=== PATIENT | male | born 1960 | race African-American/Black ===

== ENCOUNTER 2017-04-18 09:52 | Inpatient (IN) | payer MEDICARE, OTHER ==
[~2017-04-18] VITALS: Ht 185.4 cm; Wt 117.9 kg
[~2017-04-18 09:52] MED LIST: BACTRIM DS TAB1 EAC1 ORAL; DOCUSATE S50 MG/5 ML PO; DULCOLAX10 MG RC; FAMOTIDINE20 MG ORAL; FOLIC ACID1 MG ORAL; HYDRALAZINE HCL50 MG ORAL; IBUPROFEN800 MG ORAL; LISINOPRIL5 MG ORAL; MILK OF MA400 MG/51 ORAL; PLAVIX75 MG ORAL; TYLENOL325 MG ORAL; TYLENOL650 MG/20. ORAL; UNOBMED; UTI-STAT L3875 MG/31 PO; VITAMIN B122500 MCG PO; VITAMIN B650 M1 GT; VITAMIN D31000 UNI2 PO
[2017-04-18] MEDS ORDERED: TYLENOL EXTRA500 MG ORAL (10:02)
[2017-04-18] MEDS ORDERED: VITAMIN C500 M3 ORAL (10:02)
[2017-04-18] MEDS ORDERED: KEPPRA LIQ100 MG/1 M GT (10:02)
[2017-04-18] MEDS ORDERED: MULTI-DELYN237 ML GT (10:02)
[2017-04-18 10:10] VITALS: BP 142/76
[2017-04-18 10:44] LABS: BASOPHILS % (AUTO) 0.7 % (0.0-2.0); EOSINOPHILS % (AUTO) 0.1 % (0.0-3.0); LYMPHOCYTES % (AUTO) 11.5 % (20.0-45.0); MEAN CORPUSCULAR HEMOGLOBIN 26.9 PG (27.0-31.0); MEAN CORPUSCULAR HGB CONC 31.4 G/DL (32.0-36.0); MEAN CORPUSCULAR VOLUME 86 FL (80-99); MEAN PLATELET VOLUME 5.9 FL (6.5-10.1); MONOCYTES % (AUTO) 6.5 % (1.0-10.0); NEUTROPHILS % (AUTO) 81.2 % (45.0-75.0); PLATELET COUNT 419 K/UL (150-450); RED BLOOD COUNT 5.46 M/UL (4.70-6.10); WHITE BLOOD COUNT 13.2 K/UL (4.8-10.8)
--- NOTE | 2017-04-18 10:49 | Diagnostic Imaging Report ---
Indication: Shortness of breath Technique: XRAY CHEST 1 V Comparison: None Findings: Examination is limited by poor inspiration with bronchovascular crowding and left basilar atelectasis. Cardiac silhouette appears prominent. There is no consolidation or obvious pleural effusion. Degenerative changes of the spine are seen. Impression: Poor inspiration with bronchovascular crowding and left basilar atelectasis. Followup recommended.
[2017-04-18 11:01] LABS: TROPONIN I < 0.30 ng/mL (<=0.30)
[2017-04-18 11:04] LABS: ALANINE AMINOTRANSFERASE 17 U/L (3-41); ALBUMIN/GLOBULIN RATIO 1.1 (1.0-2.7); ANION GAP 20 (5-15); ASPARTATE AMINO TRANSFERASE 16 U/L (5-40); CALCIUM 9.9 mg/dL (8.6-10.2); CARBON DIOXIDE 20 mEQ/L (20-30); CHLORIDE 100 mEQ/L (98-107); CREATININE 1.1 mg/dL (0.7-1.2); GLOMERULAR FILTRATION RATE > 60 mL/min (>60); HEMOLYSIS 16; POTASSIUM 4.3 mEQ/L (3.4-4.9); SODIUM 140 mEQ/L (135-145); TOTAL PROTEIN 8.4 g/dL (6.6-8.7)
[2017-04-18 11:14] LABS: CKMB < 1.5 ng/mL (< 6.7)
[2017-04-18 11:35] VITALS: BP 153/96
[2017-04-18 12:10] LABS: APPEARANCE,URINE SLIGHTLY CLOUDY; KETONES,URINE 1+ (NEGATIVE); LEUKOCYTE ESTERASE ,URINE NEGATIVE (NEGATIVE); NITRITE,URINE NEGATIVE (NEGATIVE); PH,URINE 5 (4.5-8.0); PROTEIN,URINE 2+ (NEGATIVE); UROBILINOGEN,URINE NORMAL MG/DL (0.0-1.0)
[2017-04-18 12:18] LABS: BACTERIA,URINE FEW /HPF; SQUAMOUS EPITHELIAL CELL,UR OCCASIONAL /LPF (NONE/OCC); WBC,URINE 0-2 /HPF (0 - 0)
[2017-04-18 12:19] LABS: AMORPHOUS SEDIMENT,UR FEW /LPF
[2017-04-18 13:34] VITALS: BP 141/75
[2017-04-18] MEDS ORDERED: Cefepime 2gm ONE (13:57)
[2017-04-18] MEDS ORDERED: Cefepime HCl 2 GM in D5W 110 ML IVPB ONE (14:00)
[2017-04-18] MEDS ORDERED: Vancomycin 1.5gm/D5W 250ml 250 ML IVPB ONE (14:00)
--- NOTE | 2017-04-18 14:02 | Emergency Room Report ---
History of Present Illness General Chief Complaint: Altered Mental Status Source: EMS Present Illness HPI 56-year-old male coming from [facility] with a history of CVA w right -sided hemiparesis, hypertension chronic kidney disease, dementia sent from [place] from inceased AMS. Per ems, patient's baseline aox1, was noted to be "more altered" than his normal this morning. unknown last seen normal. patient can say his name although not answering questions appropriately at this time Allergies: Coded Allergies: NO KNOWN ALLERGIES (Unverified Allergy, Unknown, 06/28/15) Patient History Limited by: medical condition Past Medical History: HTN, CVA/TIA, psych hx Past Surgical History: unable to obtain Pertinent Family History: unable to obtain Nursing Documentation-PMH Hx Cardiac Problems: No Hx Asthma: No Hx COPD: Yes Hx Diabetes: Yes Hx Cancer: No Hx Gastrointestinal Problems: Yes - DYSPHAGIA, GTUBE, GERD Hx Cerebrovascular Accident: Yes Hx Transient Ischemic Attacks: No Hx Dementia: No Hx Alzheimer's Disease: No Hx Parkinson's Disease: No Hx Encephalitis: No Hx Seizures: Yes Hx Epilepsy: Yes - without status epilepticus Hx Multiple Sclerosis: No Hx Cerebral Palsy: No Hx Amyotrophic Lat Sclerosis: No Hx Guillian-[place] Syndrome: No Hx Paralysis: No Hx Peripheral Neuropathy: No Hx Spinal Cord Injury: No Hx Head Trauma: No Hx Traumatic Brain Injury: No Hx Memory Loss: No Hx Concentration Difficulty: No Hx Speech Problem: Yes - aphasia Hx Tremors: No Hx Vertigo: No Hx Dizziness: No Hx Syncope: No Hx Headaches: No Hx Aphasia: Yes Hx Dysphasia: Yes Hx Numbness: No Hx Weakness: No Hx Fatigue: No Hx Neurologic Surgery: No Hx Brain Shunt: No Review of Systems All Other Systems: limited Physical Exam Vital Signs Date Time Temp Pulse Resp B/P Pulse Ox O2 Delivery O2 Flow Rate FiO2 04/18/17 09:46 98.4 88 20 142/76 98 Room Air Sp02 EP Interpretation: normal General Appearance: other - Chronically ill-appearing male awake oriented to name following directions only with left side not conversing Head: normocephalic, atraumatic Eyes: bilateral eye EOMI, bilateral eye PERRL, bilateral eye normal inspection ENT: normal ENT inspection, normal pharynx, moist mucus membranes Neck: normal inspection, full range of motion, supple Respiratory: normal inspection, lungs clear, normal breath sounds, no respiratory distress, no retraction, no wheezing Cardiovascular #1: normal inspection, regular rate, rhythm, no edema, normal capillary refill Gastrointestinal: normal inspection, other - PEG tube in place. No grimace to deep palpation all quadrants of abdomen Genitourinary: no CVA tenderness Musculoskeletal: normal inspection, back normal, non-tender, other Neurologic: other - Oriented x1. Not conversing. Right-sided hemiparesis Skin: normal inspection, normal color, no rash, warm/dry, well hydrated, normal turgor Medical Decision Making Diagnostic Impression: Primary Impression: Altered mental status Additional Impression: Pneumonia ER Course 56 yo M with AMS DDX: electrolyte disturbance, dehydration, cardiac ekg Plan: Obtain labs, ua, ucx, CXR, EKG CT head ER course: Labs: mild leukocytosis, trop negative EKG: NSR, mild KAUSHIK I and aVL concave morphology only no reciprocal changes CXR: R sided infiltrate CT head: no acute disease patient has otherwise remained stable during ED stay Disposition: Patient is to be admitted to med surg unit. Patient requires inpatient admission due to ams and pneumonia D/w hospitalist Laboratory Tests Test 04/18/17 10:15 04/18/17 11:56 White Blood Count 13.2 K/UL (4.8-10.8) H Red Blood Count 5.46 M/UL (4.70-6.10) Hemoglobin 14.7 G/DL (14.2-18.0) Hematocrit 46.8 % (42.0-52.0) Mean Corpuscular Volume 86 FL (80-99) Mean Corpuscular Hemoglobin 26.9 PG (27.0-31.0) L Mean Corpuscular Hemoglobin Concent 31.4 G/DL (32.0-36.0) L Red Cell Distribution Width 13.0 % (11.6-14.8) Platelet Count 419 K/UL (150-450) Mean Platelet Volume 5.9 FL (6.5-10.1) L Neutrophils (%) (Auto) 81.2 % (45.0-75.0) H Lymphocytes (%) (Auto) 11.5 % (20.0-45.0) L Monocytes (%) (Auto) 6.5 % (1.0-10.0) Eosinophils (%) (Auto) 0.1 % (0.0-3.0) Basophils (%) (Auto) 0.7 % (0.0-2.0) Sodium Level 140 mEQ/L (135-145) Potassium Level 4.3 mEQ/L (3.4-4.9) Chloride Level 100 mEQ/L (98-107) Carbon Dioxide Level 20 mEQ/L (20-30) Anion Gap 20 (5-15) H Blood Urea Nitrogen 12 mg/dL (7-23) Creatinine 1.1 mg/dL (0.7-1.2) Estimate Glomerular Filtration Rate > 60 mL/min (>60) Glucose Level 126 mg/dL (74-106) H Calcium Level 9.9 mg/dL (8.6-10.2) Total Bilirubin < 0.2 mg/dL (0.0-1.2) Aspartate Amino Transferase (AST) 16 U/L (5-40) Alanine Aminotransferase (ALT) 17 U/L (3-41) Alkaline Phosphatase 70 U/L (40-129) Total Creatine Kinase 65 U/L (38-174) Creatine Kinase MB < 1.5 ng/mL (< 6.7) Creatine Kinase MB Relative Index 2.3 Troponin I < 0.30 ng/mL (<=0.30) Total Protein 8.4 g/dL (6.6-8.7) Albumin 4.4 g/dL (3.5-5.2) Globulin 4.0 g/dL Albumin/Globulin Ratio 1.1 (1.0-2.7) Urine Color Pale yellow Urine Appearance Slightly cloudy Urine pH 5 (4.5-8.0) Urine Specific [place] 1.020 (1.005-1.035) Urine Protein 2+ (NEGATIVE) H Urine Glucose (UA) Negative (NEGATIVE) Urine Ketones 1+ (NEGATIVE) H Urine Occult Blood 1+ (NEGATIVE) H Urine Nitrite Negative (NEGATIVE) Urine Bilirubin Negative (NEGATIVE) Urine Urobilinogen Normal MG/DL (0.0-1.0) Urine Leukocyte Esterase Negative (NEGATIVE) Urine RBC 2-4 /HPF (0 - 0) H Urine WBC 0-2 /HPF (0 - 0) Urine Squamous Epithelial Cells Occasional /LPF Urine Amorphous Sediment Few /LPF (NONE) H Urine Bacteria Few /HPF (NONE) Urine Opiates Screen Negative (NEGATIVE) Urine Barbiturates Screen Negative (NEGATIVE) Phencyclidine (PCP) Screen Negative (NEGATIVE) Urine Amphetamines Screen Negative (NEGATIVE) Urine Benzodiazepines Screen Negative (NEGATIVE) Urine Cocaine Screen Negative (NEGATIVE) Urine Marijuana (THC) Screen Negative (NEGATIVE) EKG Diagnostic Results Rate: normal Rhythm: NSR ST Segments: other - mild KAUSHIK concave morphology ASA given to the pt in ED: No Rhythm Strip Diag. Results EP Interpretation: yes Rhythm: NSR, no PVC's Chest X-Ray Diagnostic Results Chest X-Ray Diagnostic Results : Chest X-Ray Ordered: Yes # of Views/Limited/Complete: 1 View Indication: Other EP Interpretation: Yes Interpretation: other - R infiltrate Impression: Other - R sided infiltrate c/w pneumonia Interpreting ER Provider: Electronically signed by Diaz Davenport M.D. Last Vital Signs Date Time Temp Pulse Resp B/P Pulse Ox O2 Delivery O2 Flow Rate FiO2 04/18/17 13:34 98.9 85 16 141/75 98 04/18/17 11:35 Room Air Disposition: ADMITTED INPATIENT Condition: Serious Referrals: NON PHYSICIAN (PCP) Diaz Davenport M.D. Apr 18, 2017 14:02
[2017-04-18] MEDS ORDERED: Acetaminophen 500mg (ES) tab ORAL PRN (16:15)
[2017-04-18] MEDS ORDERED: Fleet's Enema 133ml RECTAL PRN (16:15)
[2017-04-18] MEDS ORDERED: Milk of Magnesia 30ml Ud ORAL PRN (16:15)
[2017-04-18] MEDS: Ferrous Sulfate 300 MG/5 ML UDC ORAL SCH (16:15)
[2017-04-18] MEDS: NovoLOG Insulin Flexpen SUBQ SCH ×2 (16:30→21:38)
[2017-04-18 16:45] VITALS: BP 128/79
[2017-04-18] MEDS: DuoNeb 0.5-3(2.5)mg/3ml neb HHN SCH (19:00)
[2017-04-18 20:29] VITALS: BP 139/90
[2017-04-18] MEDS: levETIRAcetam 500mg/5ml Liquid ORAL SCH (21:36)
[2017-04-19] VITALS: BP 142/88
[2017-04-19] MEDS: DuoNeb 0.5-3(2.5)mg/3ml neb HHN SCH ×2 (01:00→07:00)
[2017-04-19 04:00] VITALS: BP 136/86
--- NOTE | 2017-04-19 04:45 | History and Physical Report ---
DATE OF ADMISSION: 04/18/2017 SUBJECTIVE: [facility] status. The patient has a history of CVA with right-sided hemiparesis and he was not as interactive as usual and subsequently, he was sent for evaluation. No reports of any chest pain, abdominal pain, or syncope. No melena. No hemoptysis or hematemesis. No history of PE or DVT. PAST MEDICAL HISTORY: Significant for CVA, diabetes, chronic obstructive pulmonary disease, gastroesophageal reflux disease, dysphagia secondary to CVA and he is on tube feeding, and seizure disorder. MEDICATIONS: Colace 250 mg p.o. daily, lisinopril 5 mg p.o. daily, multivitamin daily, Plavix 75 mg p.o. daily, vitamin C 500 mg p.o. daily, Zantac 150 mg p.o. daily, Keppra 500 mg p.o. b.i.d., DuoNeb HHN q.6 hours, penicillin, Dulcolax p.r.n., ferrous sulfate 300 mg G-tube daily, and Tylenol p.r.n. FAMILY HISTORY: Not available. PHYSICAL EXAM: GENERAL: No acute distress. VITALS: Blood pressure 139/90, pulse of 90, respiratory rate of 18, temperature of 98.9 degrees, and oxygen saturation 97% on room air. HEENT: Pupils equal, round, and reactive. Conjunctiva clear. Oropharynx, mucous membrane moist. NECK: No jugular venous distention. Trachea midline. LYMPHATICS: No adenopathy. LUNGS: Bronchial breath sounds bilaterally. No wheezing. No consolidation. CARDIOVASCULAR: Regular rate. S1 and S2. ABDOMEN: Soft. Bowel sounds present. EXTREMITY: No edema, clubbing, or cyanosis. NEUROLOGIC: He has right hemiplegia. He does have dysphagia and limited interaction. LABORATORY DATA: His WBC is 13.2, hemoglobin 14.7, and platelets of 419,000. Sodium 140, potassium 4.2, chloride 100, bicarb 20, BUN of 12, creatinine 1.1, glucose 126, and calcium 9.9. AST 16, ALT 70, and alkaline phosphatase . Troponin less than 0.3. CK-MB of less than 1.5. CK of 65. Albumin 4.4. Total protein 8.4. His urine had 1+ ketones, 2+ protein, and 2 to 4 RBCs. Chest x-ray, he may have left lower lung atelectasis verses infiltrate. IMPRESSION: 1. Leukocytosis could be secondary to left lower lung pneumonia. 2. Altered mental status secondary to sepsis. 3. Sepsis. 4. History of cerebrovascular accident. 5. Constipation. 6. Gastroesophageal reflux disease. 7. Diabetes mellitus. 8. Cerebrovascular accident with right hemiplegia. PLAN: We will continue his previous medications and start him on Rocephin 1 g intravenous daily and he will be continued on his bronchodilator. Osmar Wise M.D. DR: LALO JOB#: [id number] CC:
[2017-04-19] MEDS: NovoLOG Insulin Flexpen SUBQ SCH ×2 (06:30→11:30)
[2017-04-19 08:00] VITALS: BP 113/79
--- NOTE | 2017-04-19 08:18 | Diagnostic Imaging Report ---
Indication: Altered mental status Technique: Continuous helical CT scanning of the head was performed utilizing automated exposure control without intravenous contrast material. Axial and coronal reconstructions were obtained. Comparison: None CT dose: Total DLP 1404 mGycm; CTDI vol 70.4 mGy Findings: There is no acute intracranial hemorrhage, mass effect or cortical edema. Periventricular and subcortical hypoattenuation are seen. Left frontal and parietal encephalomalacia is consistent with an old infarct with a small dystrophic calcification. There is a small area of right occipital encephalomalacia suggestive of an old infarct. Right cerebellar encephalomalacia is suggestive of an old infarct. Old lacunar infarcts are seen of the left thalamus, right periventricular jones radiata and basal ganglia. The sella is grossly unremarkable. Mastoid air cells are clear. Mucosal thickening is noted of the paranasal sinuses. Bony calvarium is intact. Impression: No gross intracranial hemorrhage or focal cortical edema. MRI may be obtained for more sensitive evaluation. Nonspecific periventricular and subcortical hypoattenuation suggestive of chronic ischemic microvascular changes. Large area of left frontal and parietal encephalomalacia consistent with old infarct in the middle cerebral artery distribution. Smaller areas of right cerebellar and occipital encephalomalacia consistent with old infarct. Old lacunar infarcts as above. The CT scanner at [facility] [place] is accredited by the [employer] and the scans are performed using protocols designed to limit radiation exposure to as low as reasonably achievable to attain images of sufficient resolution adequate for diagnostic evaluation.
[2017-04-19 08:22] VITALS: BP 113/79
[2017-04-19] MEDS ORDERED: Docusate 250mg cap ORAL SCH (09:00)
[2017-04-19] MEDS ORDERED: Multivitamins W/Minerals 15 ML UDC ORAL SCH (09:00)
[2017-04-19] MEDS ORDERED: Lisinopril 2.5mg tab ORAL SCH (09:00)
[2017-04-19] MEDS ORDERED: Ascorbic Acid 500mg tab ORAL SCH (09:00)
[2017-04-19] MEDS ORDERED: cefTRIAXone 1gm/D5W 55ml IVPB SCH ×2 (09:00)
[2017-04-19] MEDS: Ferrous Sulfate 300 MG/5 ML UDC ORAL SCH (09:03)
[2017-04-19] MEDS: levETIRAcetam 500mg/5ml Liquid ORAL SCH (09:04)
[2017-04-19] MEDS ORDERED: ROCEPHIN250 MG IM ×2 (12:03→12:34)
[2017-04-19 12:08] LABS: BASOPHILS % (AUTO) 0.8 % (0.0-2.0); EOSINOPHILS % (AUTO) 2.1 % (0.0-3.0); LYMPHOCYTES % (AUTO) 26.4 % (20.0-45.0); MEAN CORPUSCULAR HEMOGLOBIN 27.7 PG (27.0-31.0); MEAN CORPUSCULAR HGB CONC 32.3 G/DL (32.0-36.0); MEAN CORPUSCULAR VOLUME 86 FL (80-99); MEAN PLATELET VOLUME 6.2 FL (6.5-10.1); MONOCYTES % (AUTO) 8.8 % (1.0-10.0); NEUTROPHILS % (AUTO) 61.9 % (45.0-75.0); PLATELET COUNT 399 K/UL (150-450); RED BLOOD COUNT 4.93 M/UL (4.70-6.10); RED CELL DISTRIBUTION WIDTH 13.3 % (11.6-14.8); WHITE BLOOD COUNT 8.8 K/UL (4.8-10.8)
[2017-04-19 12:10] VITALS: BP 134/88
[2017-04-19 12:24] LABS: ALANINE AMINOTRANSFERASE 13 U/L (3-41); ALBUMIN/GLOBULIN RATIO 1.1 (1.0-2.7); ANION GAP 13 (5-15); ASPARTATE AMINO TRANSFERASE 14 U/L (5-40); CALCIUM 9.3 mg/dL (8.6-10.2); CARBON DIOXIDE 26 mEQ/L (20-30); CHLORIDE 102 mEQ/L (98-107); CREATININE 0.9 mg/dL (0.7-1.2); GLOMERULAR FILTRATION RATE > 60 mL/min (>60); HEMOLYSIS 3; SODIUM 141 mEQ/L (135-145); TOTAL PROTEIN 7.6 g/dL (6.6-8.7)
[2017-04-19] MEDS ORDERED: Sterile Water Irrig 1000ml IRRIG ONE (14:30)
[2017-04-19] MEDS ORDERED: 1/2 NS 1000ml IV ONE (14:30)
[2017-04-19] MEDS ORDERED: Tubing IV Secondary IV ONE (14:30)
--- NOTE | 2017-04-19 17:37 | Discharge Summary ---
Discharge Summary Hospital Course Date of Admission Apr 18, 2017 at 14:20 Date of Discharge Apr 19, 2017 at 14:31 Admitting Diagnosis ams Reason for Hospitalization: sepsis HPI oYvani Richards is a 56 year old male who was admitted on Apr 18, 2017 at 14:20 for Altered Mental Status Hospital Course Patient admitted for AMS and leukocytosis. He was started empericaly on Rocephin and his leukocytosis improved and his neuro status improved and he was discharged back to shelter. He will be on antibiotic for 7 days. Discharge Condition Upon Discharge: stable Discharge Disposition Patient was discharged to [facility] (04) Discharge Diagnoses: (1) Altered mental status (2) Sepsis (3) GERD (gastroesophageal reflux disease) (4) CVA (cerebral infarction) (5) DM (diabetes mellitus) LINA MERCADO Apr 19, 2017 17:37
--- NOTE | 2017-04-22 21:24 | Cardiology Report ---
APPROVED REPORT EKG Measurement Heart [id number] Sinus tachycardia Left axis deviation Possible Lateral infarct, age undetermined Abnormal ECG
== END 2017-04-19 14:31 | DRG 872 ==
LOC: EDBD 09:52 → EMR 10:29 → EDBEDREQ 13:32 → 3E 14:20 → EDBEDREQ 14:55
DX: A41.9 Sepsis, unspecified organism (principal); I69.851 Hemiplegia and hemiparesis following other cerebrovascular disease affecting right dominant side; R41.82 Altered mental status, unspecified; K59.00 Constipation, unspecified; K21.9 Gastro-esophageal reflux disease without esophagitis; E11.9 Type 2 diabetes mellitus without complications; J44.9 Chronic obstructive pulmonary disease, unspecified; I69.391 Dysphagia following cerebral infarction; R13.10 Dysphagia, unspecified; G40.909 Epilepsy, unspecified, not intractable, without status epilepticus; Z79.02 Long term (current) use of antithrombotics/antiplatelets
CPT/HCPCS: 36415; 70450; 71010; 80053; 80300; 81001; 82550; 82553; 82962; 84484; 85025; 87081; 93005; J1815; J7620

== ENCOUNTER 2019-06-26 09:08 | Inpatient (IN) | payer MEDICARE, OTHER ==
[~2019-06-26] VITALS: Ht 177.8 cm; Wt 112.9 kg
[~2019-06-26 09:08] MED LIST changes: +KEPPRA LIQ100 MG/1 M ORAL; +MULTI-DELYN237 ML GT; +ROCEPHIN250 MG IM; +TYLENOL EXTRA500 MG ORAL; +VITAMIN C500 M3 ORAL
[2019-06-26] MEDS ORDERED: levETIRAcetam 500 MG in D5W 110 ML IV ONE (09:15)
[2019-06-26] MEDS ORDERED: LORazepam Inj 2mg/ml 1ml IV ONE (09:15)
--- NOTE | 2019-06-26 09:15 | NUR ---
ED Nurse Note: Patient brought in to ER from [facility] due to post seizure 40sec to 1 min, witnessed by SNF staff without head trauma. per EMS, pt was laying in bed. pt baseline is aao x1-2 and pt is fatigue and only knodding for the questions but non verbal at this moment. calm and cooperative. pt has weakness in general body. skin clean and intact. no acute distress noted at this moment. VSS as documented.
--- NOTE | 2019-06-26 09:19 | Emergency Room Report ---
History of Present Illness General Chief Complaint: Seizure Source: Patient, EMS Present Illness HPI Resents after having witnessed tonic-clonic seizure. The patient is on Keppra. The patient is status post stroke involving the right side. The patient is nodding yes to all questions. This includes questioning him about headache, body pain. He also agrees that he is eating okay and moving his bowels without difficulty and not having any dysuria. Accu-Chek in the field was 124. Uncertain when the patient had his last seizure before today's. It is in a board and care facility. Allergies: Coded Allergies: NO KNOWN ALLERGIES (Unverified Allergy, Unknown, 06/28/15) Patient History Past Medical History: see triage record Social History: Denies: smoking, alcohol use, drug use Social History Narrative Board and care Reviewed Nursing Documentation: PMH: Agreed; PSxH: Agreed Nursing Documentation-PMH Past Medical History: No History, Except For Hx Cardiac Problems: No Hx Asthma: No Hx COPD: Yes Hx Diabetes: Yes Hx Cancer: No Hx Gastrointestinal Problems: Yes - DYSPHAGIA, GTUBE, GERD Hx Cerebrovascular Accident: Yes Hx Transient Ischemic Attacks: No Hx Dementia: No Hx Alzheimer's Disease: No Hx Parkinson's Disease: No Hx Encephalitis: No Hx Seizures: Yes Hx Epilepsy: Yes - without status epilepticus Hx Multiple Sclerosis: No Hx Cerebral Palsy: No Hx Amyotrophic Lat Sclerosis: No Hx Guillian-[place] Syndrome: No Hx Paralysis: No Hx Peripheral Neuropathy: No Hx Spinal Cord Injury: No Hx Head Trauma: No Hx Traumatic Brain Injury: No Hx Memory Loss: No Hx Concentration Difficulty: No Hx Speech Problem: Yes - aphasia Hx Tremors: No Hx Vertigo: No Hx Dizziness: No Hx Syncope: No Hx Headaches: No Hx Aphasia: Yes Hx Dysphasia: Yes Hx Numbness: No Hx Weakness: No Hx Fatigue: No Hx Neurologic Surgery: No Hx Brain Shunt: No Review of Systems All Other Systems: negative except mentioned in HPI - Question accuracy Physical Exam Vital Signs Date Time Temp Pulse Resp B/P (MAP) Pulse Ox O2 Delivery O2 Flow Rate FiO2 06/26/19 09:00 98.4 89 16 142/87 (105) 98 Room Air Sp02 EP Interpretation: reviewed, normal General Appearance: well appearing, no apparent distress, alert, non-toxic, other - ebulic Head: normocephalic Eyes: bilateral eye PERRL, bilateral eye EOMI, bilateral eye other - arcus or post surgical changes ENT: moist mucus membranes - no lingual truama Neck: full range of motion, supple, no meningismus Respiratory: chest non-tender, lungs clear, normal breath sounds Cardiovascular #1: regular rate, rhythm Cardiovascular #2: 2+ radial (R) Gastrointestinal: normal inspection, normal bowel sounds, non tender, no mass, non-distended Musculoskeletal: back normal, other - contractures R hand Neurologic: responsive, motor weakness - Right hemiparesis with contracture, Babinski - Right, other - Expressive aphasia Psychiatric: mood/affect normal Skin: no rash, warm/dry, other - lypoma right neck Medical Decision Making Diagnostic Impression: Primary Impression: Uncontrolled seizures Qualified Codes: R56.9 - Unspecified convulsions Additional Impressions: Leukocytosis Qualified Codes: D72.828 - Other elevated white blood cell count Status post CVA ER Course Presents post witnessed tonic clonic seizure at a [facility]. Differential includes breakthrough seizure, noncompliance, electrolyte abnormality, brain bleed amongst others. There is evidence of a previous CVA. Evaluation will be with EKG, CT of the head, chest x-ray and labs. The patient will be treated with IV hydration, Ativan and a dose of Keppra. Due to the complexity of this patient's presentation he will need observation in the telemetry bed to ascertain that there is a seizure disorder is under control. EKG no injury. CXR no infiltrate. CT with old infarcts and craneomalacia. Labs with leukocytosis - no left shift. CMP unremarkable except for low bicarb (felt due to seizure). No more seizure activity, however, patient needs observation in telemetry to exclude arrhythmia and continued seizure activity. Initially discussed with Dr. Camacho. Then Dr. Degroot called to inform us that PMD requested he admit the patient. Laboratory Tests Test 06/26/19 09:15 06/26/19 10:20 White Blood Count 13.8 K/UL (4.8-10.8) H Red Blood Count 4.87 M/UL (4.70-6.10) Hemoglobin 13.0 G/DL (14.2-18.0) L Hematocrit 41.4 % (42.0-52.0) L Mean Corpuscular Volume 85 FL (80-99) Mean Corpuscular Hemoglobin 26.7 PG (27.0-31.0) L Mean Corpuscular Hemoglobin Concent 31.5 G/DL (32.0-36.0) L Red Cell Distribution Width 13.7 % (11.6-14.8) Platelet Count 366 K/UL (150-450) Mean Platelet Volume 5.5 FL (6.5-10.1) L Neutrophils (%) (Auto) 63.4 % (45.0-75.0) Lymphocytes (%) (Auto) 25.6 % (20.0-45.0) Monocytes (%) (Auto) 8.1 % (1.0-10.0) Eosinophils (%) (Auto) 1.7 % (0.0-3.0) Basophils (%) (Auto) 1.2 % (0.0-2.0) Sodium Level 144 MMOL/L (136-145) Potassium Level 3.8 MMOL/L (3.5-5.1) Chloride Level 110 MMOL/L (98-107) H Carbon Dioxide Level 16 MMOL/L (21-32) L Anion Gap 18 mmol/L (5-15) H Blood Urea Nitrogen 12 mg/dL (7-18) Creatinine 1.1 MG/DL (0.55-1.30) Estimate Glomerular Filtration Rate > 60 mL/min (>60) Glucose Level 101 MG/DL (74-106) Calcium Level 8.4 MG/DL (8.5-10.1) L Total Bilirubin 0.2 MG/DL (0.2-1.0) Aspartate Amino Transferase (AST) 20 U/L (15-37) Alanine Aminotransferase (ALT) 39 U/L (12-78) Alkaline Phosphatase 73 U/L (46-116) Total Creatine Kinase 90 U/L (26-308) Troponin I 0.001 ng/mL (0.000-0.056) Total Protein 7.7 G/DL (6.4-8.2) Albumin 3.1 G/DL (3.4-5.0) L Globulin 4.6 g/dL Albumin/Globulin Ratio 0.7 (1.0-2.7) L Serum Alcohol < 3 mg/dL Urine Color Pale yellow Urine Appearance Clear Urine pH 6.5 (4.5-8.0) Urine Specific [place] 1.010 (1.005-1.035) Urine Protein 2+ (NEGATIVE) H Urine Glucose (UA) Negative (NEGATIVE) Urine Ketones Negative (NEGATIVE) Urine Blood Negative (NEGATIVE) Urine Nitrite Negative (NEGATIVE) Urine Bilirubin Negative (NEGATIVE) Urine Urobilinogen Normal MG/DL (0.0-1.0) Urine Leukocyte Esterase Negative (NEGATIVE) Urine RBC 0 /HPF (0 - 0) Urine WBC 0 /HPF (0 - 0) Urine Squamous Epithelial Cells None /LPF (NONE/OCC) Urine Amorphous Sediment Occasional /LPF (NONE) Urine Bacteria None /HPF (NONE) Urine Opiates Screen Negative (NEGATIVE) Urine Barbiturates Screen Negative (NEGATIVE) Phencyclidine (PCP) Screen Negative (NEGATIVE) Urine Amphetamines Screen Negative (NEGATIVE) Urine Benzodiazepines Screen Negative (NEGATIVE) Urine Cocaine Screen Negative (NEGATIVE) Urine Marijuana (THC) Screen Negative (NEGATIVE) EKG Diagnostic Results Rate: normal Rhythm: NSR ST Segments: no acute changes Rhythm Strip Diag. Results EP Interpretation: yes Rhythm: NSR, no PVC's, no ectopy Chest X-Ray Diagnostic Results Chest X-Ray Diagnostic Results : Chest X-Ray Ordered: Yes # of Views/Limited/Complete: 1 View Indication: Other EP Interpretation: Yes Interpretation: no consolidation, no effusion, no pneumothorax Impression: Other CT/MRI/US Diagnostic Results CT/MRI/US Diagnostic Results : Imaging Test Ordered: head Impression Findings: There is an area of cortical encephalomalacia involving the left frontal lobe again demonstrated consistent with an old infarct. Small focus of encephalomalacia in the right cerebellum also noted unchanged. There is moderate prominence of the ventricles, basal cisterns, and cerebral sulci consistent with atrophy. Moderate, nonspecific, white matter hypoattenuation is noted throughout the brain consistent with chronic small vessel disease. There is no midline shift, edema, acute hemorrhage, mass effect, or abnormal extra-axial fluid collections. Bones are unremarkable. Last Vital Signs Date Time Temp Pulse Resp B/P (MAP) Pulse Ox O2 Delivery O2 Flow Rate FiO2 06/26/19 13:45 98.2 89 16 148/78 98 Room Air Status: improved Disposition: PLACE IN OBSERVATION Condition: Serious Gagan Garrett MD Jun 26, 2019 09:19
[2019-06-26] MEDS ORDERED: CRANBERRY450 M4 PO (09:20)
[2019-06-26] MEDS ORDERED: ZONEGRAN100 MG ORAL (09:20)
[2019-06-26] MEDS ORDERED: COLACE100 MG ORAL (09:20)
[2019-06-26] MEDS ORDERED: LIPITOR10 MG ORAL (09:20)
[2019-06-26] MEDS ORDERED: FLEET ENEMA133 ML RECTAL (09:20)
[2019-06-26] MEDS ORDERED: MULTIVITAMINS1 EAC8 ORAL (09:20)
--- NOTE | 2019-06-26 09:29 | NUR ---
ED Nurse Note: pt went down for imaging in stable condition.
[2019-06-26 09:34] VITALS: BP 142/87
[2019-06-26 09:40] LABS: BASOPHILS % (AUTO) 1.2 % (0.0-2.0); EOSINOPHILS % (AUTO) 1.7 % (0.0-3.0); HEMATOCRIT 41.4 % (42.0-52.0); LYMPHOCYTES % (AUTO) 25.6 % (20.0-45.0); MEAN CORPUSCULAR VOLUME 85 FL (80-99); MONOCYTES % (AUTO) 8.1 % (1.0-10.0); NEUTROPHILS % (AUTO) 63.4 % (45.0-75.0); PLATELET COUNT 366 K/UL (150-450); RED BLOOD COUNT 4.87 M/UL (4.70-6.10); RED CELL DISTRIBUTION WIDTH 13.7 % (11.6-14.8); WHITE BLOOD COUNT 13.8 K/UL (4.8-10.8)
[2019-06-26 09:57] LABS: ANION GAP 18 mmol/L (5-15); BLOOD UREA NITROGEN 12 mg/dL (7-18); CALCIUM 8.4 MG/DL (8.5-10.1); CARBON DIOXIDE 16 MMOL/L (21-32); CHLORIDE 110 MMOL/L (98-107); CREATININE 1.1 MG/DL (0.55-1.30); POTASSIUM 3.8 MMOL/L (3.5-5.1); SODIUM 144 MMOL/L (136-145)
[2019-06-26 09:58] LABS: ALANINE AMINOTRANSFERASE 39 U/L (12-78); ALBUMIN 3.1 G/DL (3.4-5.0); ALBUMIN/GLOBULIN RATIO 0.7 (1.0-2.7); ALKALINE PHOSPHATASE 73 U/L (46-116); ASPARTATE AMINO TRANSFERASE 20 U/L (15-37); BILIRUBIN,TOTAL 0.2 MG/DL (0.2-1.0); CREATINE KINASE 90 U/L (26-308)
--- NOTE | 2019-06-26 10:00 | NUR ---
ED Nurse Note: Rt weakness noted. pt nodded for question if it is from stroke and chronic.
--- NOTE | 2019-06-26 10:03 | NUR ---
ED Nurse Note: pt came back from CT scan in stable condition. x-ray at bedside.
[2019-06-26 10:39] LABS: APPEARANCE,URINE CLEAR; BILIRUBIN, URINE NEGATIVE (NEGATIVE); COLOR,URINE PALE YELLOW; GLUCOSE, URINE (UA) NEGATIVE (NEGATIVE); KETONES,URINE NEGATIVE (NEGATIVE); LEUKOCYTE ESTERASE ,URINE NEGATIVE (NEGATIVE); NITRITE,URINE NEGATIVE (NEGATIVE); PH,URINE 6.5 (4.5-8.0); PROTEIN,URINE 2+ (NEGATIVE); UROBILINOGEN,URINE NORMAL MG/DL (0.0-1.0)
--- NOTE | 2019-06-26 10:40 | Diagnostic Imaging Report ---
Indication: Headache Technique: Contiguous 5 mm thick transaxial imaging of the head obtained in a Siemens Sensation [address] scanner. Soft tissue and bone windows generated. Automatic Exposure Control was utilized. Total Dose length Product (DLP): [address] Dose Index Volume (CTDIvol): 62.7 mGy Comparison: 04/18/2017 Findings: There is an area of cortical encephalomalacia involving the left frontal lobe again demonstrated consistent with an old infarct. Small focus of encephalomalacia in the right cerebellum also noted unchanged. There is moderate prominence of the ventricles, basal cisterns, and cerebral sulci consistent with atrophy. Moderate, nonspecific, white matter hypoattenuation is noted throughout the brain consistent with chronic small vessel disease. There is no midline shift, edema, acute hemorrhage, mass effect, or abnormal extra-axial fluid collections. Bones are unremarkable. Impression: Old infarcts. No change from the previous study. No acute intracranial bleed, mass effect or edema. Moderate atrophy of the brain. Evidence of chronic small vessel disease involving white matter tracts. The CT scanner at [facility] is accredited by the [employer] and the scans are performed using dose optimization techniques as appropriate to a performed exam including Automatic Exposure control.
--- NOTE | 2019-06-26 12:22 | Diagnostic Imaging Report ---
Indication: Dyspnea Comparison: 04/18/2017 A single view chest radiograph was obtained. Findings: No definite infiltrate or pulmonary vascular congestion identified. The heart is enlarged. The aorta is mildly enlarged consistent with atherosclerotic vascular disease. The bones are osteopenic. Impression: No acute disease
--- NOTE | 2019-06-26 12:58 | NUR ---
ED Nurse Note: Report given to ZAHRA Lind.
--- NOTE | 2019-06-26 13:00 | NUR ---
NURSE NOTES: RECEIVED TELEPHONE REPORT FROM JOB MILK COLLECTOR OF ED.PT AMITTED WITH DX OF UNCONTROLLED SEIZURE. JOB STATED " NO EVIDENCE OF SEIZURES AT HIS TIME." A WAITING FOR PT TO COME TO 2 EAST ROOM 204.
--- NOTE | 2019-06-26 13:45 | NUR ---
ED Nurse Note: pt left unit with 1 sterilization tech and 1 RN in stable condition.
--- NOTE | 2019-06-26 14:27 | NUR ---
NURSE NOTES: RECEIVED PT VIA [facility] AWAKE AND ALERT ,NON-VERBAL BUT ABLE TO FALLOWS SIMPLE COMMANDS.FULL BODY ASSESSMENT DONE, SKIN INTACT ,NO EVIDENCE OF ANY SKIN BRAKE DOWN NOTED AT THIS TIME. PLACED A TELEPHONE CALL TO DR IRENE AND MADE AWARE AND NOTIFIED REGARDING NEW ADMISSION.REC,D ADMISSION ORDERS FROM DR IRENE. ALL NEW ORDERS NOTED AND CARRIED OUT.WILL CONT TO MONITOR.
[2019-06-26 14:30] VITALS: BP 147/64
[2019-06-26] MEDS ORDERED: LORazepam Inj 2mg/ml 1ml IV PRN (15:42)
[2019-06-26] MEDS ORDERED: Acetaminophen 650mg/20.3ml ORAL PRN (15:45)
[2019-06-26] MEDS ORDERED: Milk of Magnesia 30ml Ud ORAL PRN (15:57)
[2019-06-26] MEDS ORDERED: Acetaminophen 500mg (ES) tab ORAL PRN (15:58)
[2019-06-26 16:00] VITALS: BP 155/93
--- NOTE | 2019-06-26 19:15 | NUR ---
NURSE NOTES: Pt received from Diogo, RN alert and oriented x1 to name only but non-verbal, nods and shakes head in response. IV site asymptomatic and patent on R hand 20g running to 1/2 NS at 75 as ordered. Seizure precautions implemented - side rails padded, O2 at bedside, suction at bedside. Bed alarm on, bed in lowest position, call light and belongings within reach.
[2019-06-26 20:00] VITALS: BP 142/91
--- NOTE | 2019-06-26 20:24 | NUR ---
NURSE NOTES: Endorsed to Dr. Degroot pt's lack of resuscitation status and hx of DM. Per Dr. Degroot, place pt in full code per POLST and monitor accuchecks achs but no insulin coverage ordered d/t pt's lack of DM meds outside of hospital. Will carry out orders.
[2019-06-26] MEDS ORDERED: Phenytoin 100mg cap ORAL SCH (21:00)
--- NOTE | 2019-06-26 22:30 | History and Physical Report ---
DATE OF ADMISSION: 06/26/2019 HISTORY OF PRESENT ILLNESS: The patient is a 58-year-old male came to the emergency room from half-way where he had a seizure. The patient currently more awake, alert, comfortable. PAST MEDICAL HISTORY: Seizure, hypertension, degenerative arthritis, early depression. MEDICATIONS: See the list. ALLERGIES: NKA. FAMILY HISTORY: Noncontributory. SOCIAL HISTORY: Lives at a half-way. PHYSICAL EXAMINATION: GENERAL: This is an elderly male, currently comfortable. VITAL SIGNS: Blood pressure is slightly high at 162/101, pulse 86, respirations 20, temperature 98.1. HEENT: NAD. CHEST: Bilaterally clear. CARDIOVASCULAR: Regular rhythm. ABDOMEN: Soft. Positive bowel sounds. Nontender. EXTREMITIES: CCE. NEUROLOGICAL: Generalized weakness. ASSESSMENT: 1. Uncontrolled seizure. 2. Hypertension. 3. Encephalopathy. 4. Depression. PLAN: 1. We will add Dilantin. 2. Consider neuro consult. 3. Ativan p.r.n. 4. PT and OT. 5. Monitor lab. 6. Cardiology consult for cardiac arrhythmia. Ernesto Degroot M.D. DR: GARY JOB#: [id number] CC:
[2019-06-26] MEDS: levETIRAcetam 500mg/5ml Liquid ORAL SCH (22:37)
--- NOTE | 2019-06-26 23:30 | Consultation ---
DATE OF CONSULTATION: 06/26/2019 CONSULTING PHYSICIAN: Gagan Camacho M.D. REQUESTING PHYSICIAN: Ernesto Degroot M.D. REASON FOR CONSULTATION: Altered mentation and tachycardia in the setting of cerebrovascular disease and seizures. HISTORY OF PRESENT ILLNESS: This unfortunate 58-year-old male has known history of cerebrovascular disease with prior cerebrovascular accident and right-sided hemiparesis. He apparently has a known seizure disorder because he is on antiseizure medications. There is no record of noncompliance noted as he lives in a [facility] facility. He developed tonic-colonic seizure today. He apparently was unresponsive for some time but in the emergency room nodding yes to most questions. He had a normal glucose level in the field and stable vital signs. I have been asked to address further acute cardiac cardiovascular care. PAST MEDICAL HISTORY: 1. CVA with right hemiparesis. 2. Type 2 diabetes mellitus. 3. Dysphagia with G-tube. 4. Gastroesophageal reflux disease. 5. Aphasia. 6. Seizure disorder. 7. Possible COPD. MEDICATIONS: Reviewed. ALLERGIES: None. FAMILY HISTORY: Not known. SOCIAL HISTORY: No record of smoking, alcohol, or substance abuse. REVIEW OF SYSTEMS: Cannot be reliably obtained from the patient. However, pertinent data from records as noted above. PHYSICAL EXAMINATION: GENERAL: He is awake and alert but frequently somnolent. He is nonverbal but does respond to head nodding when he is awake. VITAL SIGNS: Blood pressure 142/87, pulse 89, respiratory rate 16, afebrile, room air oxygen saturation 98%. HEENT: Conjunctivae pink. Oropharynx clear. NECK: Obese. LUNGS: Clear. CARDIAC: Regular rhythm and rate. Normal S1, S2 with a fourth heart sound. Point of maximal pulse ABDOMEN: Soft, nontender. G-tube intact. EXTREMITIES: With no edema. NEUROLOGIC: Right-sided hemiparesis noted. Aphasia. LABORATORY AND DIAGNOSTIC DATA: EKG reveals sinus rhythm, no acute abnormalities. Chest x-ray with no acute process. CT scan of the head revealed no acute process but old cerebrovascular accident. White count 13.8, hemoglobin 13. Sodium 144, potassium 3.8, bicarb 16, BUN 12, and creatinine 1.1. Troponin negative. Albumin 3.1. IMPRESSION: 1. Breakthrough seizure. 2. Possible acute cerebrovascular insult. 3. Precipitating seizure. 4. Cerebrovascular disease with prior CVA and right hemiparesis. 5. Aphasia and dysphagia. 6. Mild protein-calorie malnutrition. 7. Metabolic acidosis likely associated with seizure activity. 8. Prerenal azotemia and mild hypovolemia. PLAN: 1. Check drug levels. 2. Cardiac monitoring. 3. Antiplatelet therapy with clopidogrel. 4. Metabolic profile. 5. Seizure precautions. 6. Adjust hydration with IV fluids based on clinical parameters. 7. Check full lipid panel and metabolic profile. 8. Maintain statin drug for LDL goal less than 100. Gagan Camacho M.D. DR: Bari JOB#: [id number] CC:
[2019-06-27] VITALS (7 sets, daily range): BP systolic 143–167; BP diastolic 79–106
--- NOTE | 2019-06-27 03:06 | NUR ---
NURSE NOTES: Patient resting in bed, asleep with no acute s/s of distress noted. IV site asymptomatic and patent, running to 1/2 NS at 75 as ordered. radiation monitor on - Sinus Rhythm. Seizure precautions implemented. Bed alarm on, bed in lowest position. Call light and belongings within reach.
[2019-06-27 07:04] LABS: EOSINOPHILS % (AUTO) 2.3 % (0.0-3.0); HEMATOCRIT 44.7 % (42.0-52.0); HEMOGLOBIN 14.5 G/DL (14.2-18.0); LYMPHOCYTES % (AUTO) 30.3 % (20.0-45.0); MEAN CORPUSCULAR VOLUME 84 FL (80-99); MONOCYTES % (AUTO) 9.5 % (1.0-10.0); PLATELET COUNT 441 K/UL (150-450); RED BLOOD COUNT 5.31 M/UL (4.70-6.10); RED CELL DISTRIBUTION WIDTH 13.5 % (11.6-14.8); WHITE BLOOD COUNT 12.9 K/UL (4.8-10.8)
--- NOTE | 2019-06-27 07:33 | NUR ---
HAND-OFF: Report given to ZAHRA Hopkins. Plan of care endorsed.
[2019-06-27 07:37] LABS: ALANINE AMINOTRANSFERASE 46 U/L (12-78); ALBUMIN 3.5 G/DL (3.4-5.0); ALBUMIN/GLOBULIN RATIO 0.7 (1.0-2.7); ALKALINE PHOSPHATASE 84 U/L (46-116); ANION GAP 13 mmol/L (5-15); ASPARTATE AMINO TRANSFERASE 33 U/L (15-37); BILIRUBIN,TOTAL 0.5 MG/DL (0.2-1.0); BLOOD UREA NITROGEN 9 mg/dL (7-18); CALCIUM 9.4 MG/DL (8.5-10.1); CARBON DIOXIDE 25 MMOL/L (21-32); CHLORIDE 107 MMOL/L (98-107); CHOLESTEROL 181 MG/DL (< 200); CREATININE 1.1 MG/DL (0.55-1.30); HDL CHOLESTEROL 52 MG/DL (40-60); POTASSIUM 5.2 MMOL/L (3.5-5.1); SODIUM 145 MMOL/L (136-145); TRIGLYCERIDES 69 MG/DL (30-150)
--- NOTE | 2019-06-27 08:13 | NUR ---
NURSE NOTES: Received report from ZAHRA Glass. pt in bed, awake, dysphagic, follows commands, but resistive to care, assessment done, see flowsheet, IV dislodged from site, RN removed IV intact, will insert new IV in AM, pt is confused, respirations unlabored, bed in lowest position, call light within reach.
[2019-06-27] MEDS ORDERED: Multivitamin w/Minerals tab ORAL SCH (09:00)
[2019-06-27] MEDS ORDERED: Fleet's Enema 133ml RECTAL SCH (09:00)
[2019-06-27] MEDS ORDERED: Ascorbic Acid 500mg tab ORAL SCH (09:00)
[2019-06-27] MEDS ORDERED: Docusate 100mg cap ORAL SCH (09:00)
[2019-06-27] MEDS: levETIRAcetam 500mg/5ml Liquid ORAL SCH ×2 (09:29→21:41)
--- NOTE | 2019-06-27 09:55 | NUR ---
NURSE NOTES: RN attempted to insert IV with assistance from Amparo BONNER, pt became combative. RN called for additional help from ZAHRA Engel and ZAHRA Erazo, but pt continued to be combative and there was too much movement to safely insert new IV. RN notified Dr. Zane MD discontinued IV fluid, okay with no IV, and ordered transfer to Med/Surg
[2019-06-27] MEDS ORDERED: Sodium Polystyrene Sulfonate 15gm Powder ORAL SCH (10:00)
[2019-06-27] MEDS ORDERED: LORazepam 0.5mg tab ORAL PRN ×2 (11:00→15:22)
--- NOTE | 2019-06-27 15:18 | NUR ---
HAND-OFF: Report given to ZAHRA Doss. Orders and room transfered in system. Plan of care endorsed.
[2019-06-27] MEDS ORDERED: Acetaminophen 500mg (ES) tab ORAL PRN (15:19)
[2019-06-27] MEDS ORDERED: LORazepam Inj 2mg/ml 1ml IV PRN (15:20)
--- NOTE | 2019-06-27 15:34 | NUR ---
NURSE NOTES: RECEIVED PT FROM DEDRA RN FROM TELEMETRY. PT IN NO APPARENT DISTRESS AT THIS TIME. PT DOES NOT ANSWER RN'S QUESTIONS. PER DEDRA, PT IS NOT COMPLETELY NON-VERBAL, BUT WILL ANSWER ONLY WHEN HE WANTS TO. PT RESTING IN BED. IN SEMI-TRIPLETT'S POSITION WITH HOB ELEVATED. BED IN LOWEST POSITION WITH BEDSIDE RAILS X3 RAISED. BED ALARM ON. BEDSIDE RAILS PADDED. NO IV ACCESS PER PT REFUSAL. DR IRENE AWARE. CALL LIGHT WITHIN REACH. WILL CONTINUE TO MONITOR. BELONGINGS CHECKED AT BEDSIDE, ALL CLOTHING NOTED IN ADDITION TO ARM SLING.
[2019-06-27] MEDS ORDERED: 1/2 NS 1000ml IV ONE (15:45)
--- NOTE | 2019-06-27 16:51 | Cardiology Report ---
APPROVED REPORT EKG Measurement Heart [id number] Normal sinus rhythm Left axis deviation Anterolateral infarct, age undetermined Abnormal ECG
--- NOTE | 2019-06-27 19:39 | NUR ---
HAND-OFF: Report given to Christian MATHEW RN.
[2019-06-27] MEDS ORDERED: Milk of Magnesia 30ml Ud ORAL PRN (21:00)
[2019-06-27] MEDS: Phenytoin 100mg cap ORAL SCH (21:41)
--- NOTE | 2019-06-27 22:00 | NUR ---
NURSE NOTES: received pt in bed. condom catheter via gravity, skin intact and dry. pt is resistive to care. call light within reach. bed is the lowest position. will continue to provide plan of care.
--- NOTE | 2019-06-27 23:00 | Progress Note ---
DATE: 06/27/2019 CARDIOLOGY PROGRESS NOTE SUBJECTIVE: The patient is comfortable with no distress. No new seizure activity. More alert. Monitor sinus rhythm with rare sinus tachycardic episodes. OBJECTIVE: VITAL SIGNS: Blood pressure 147/99, pulse 91, respirations 20. LUNGS: Clear. CARDIAC: Regular. Normal S1, S2 with a fourth heart sound. ABDOMEN: Soft. EXTREMITIES: No edema. Baseline hemiparesis. LABORATORY DATA: White count 12.9, hemoglobin 14.5. Dilantin level 3.6. Potassium 5.2, sodium 145, BUN 9, creatinine 1.1. LDL cholesterol 128. TSH is normal. B12, folate normal. IMPRESSION: 1. Seizure disorder. 2. Hyperkalemia. 3. Borderline hypernatremia and dehydration. 4. No signs of acute coronary insufficiency. 5. Subtherapeutic Dilantin level in the setting of normal albumin level. 6. Secondary sinus tachycardia. PLAN: 1. Hypotonic IV hydration. 2. Recheck Dilantin level and adjust dosing. 3. Discontinue live in caregiver. Gagan Camacho M.D. DR: MATA JOB#: [id number] CC:
[2019-06-27] MEDS ORDERED: Lisinopril 20mg tab ORAL SCH (23:15)
--- NOTE | 2019-06-27 23:30 | NUR ---
NURSE NOTES pt. refuses to take the medication for BP x1 order. attempted multiple time to administer the medication. pt aggressively refuses (himself;cover blanket over pt's face/ trying to hit RN)
[2019-06-28 00:31] VITALS: BP 155/86
--- NOTE | 2019-06-28 03:31 | Progress Note ---
DATE: 06/27/2019 NOTE: UNCLEAR AUDIO SUBJECTIVE: The patient is an elderly male who came to the emergency room for status epilepticus. The patient was started on Dilantin, . He has pulled his IV line and we will discontinue IV fluids. . PHYSICAL EXAMINATION: VITAL SIGNS: Blood pressure 140/90, pulse is 84, respirations 18 to 24, temperature no fever. SKIN: Good skin turgor. HEENT: AT/NC. EOMI. PERRLA. NECK: Supple. CHEST: Bilaterally clear. CARDIOVASCULAR: Regular rhythm. ABDOMEN: Soft. Positive bowel sounds. Nontender. EXTREMITIES: CCE. NEUROLOGICAL: sitting in the bed, awake, oriented x2. GENITOURINARY: Deferred. LABORATORY AND DIAGNOSTIC DATA: . ASSESSMENT: 1. . 2. Hypertension. 3. Depression. 4. Mental retardation. 5. Generalized weakness. PLAN: 1. We will order PT and OT. 2. Continue Dilantin. 3. Waiting for Neurology consult and Neurologic evaluation. 4. Continue current treatment. 5. Continue Ativan as needed at 0.5. Ernesto Degroot M.D. DR: Raf JOB#: [id number] CC:
[2019-06-28 04:20] VITALS: BP 119/83
--- NOTE | 2019-06-28 06:16 | NUR ---
NURSE NOTES: pt. refuses to take the medication/Zonisamide 100 mg. attempted multiple time to administer the medication but pt aggressively refuses. reinforcement needed to compliance of medication. also pt refuses to withdraw morning labs.
--- NOTE | 2019-06-28 07:23 | NUR ---
HAND-OFF: Report given to Daryl SWEENEY.
[2019-06-28] MEDS: levETIRAcetam 500mg/5ml Liquid ORAL SCH ×3 (08:56→21:00)
[2019-06-28] MEDS: Docusate 100mg cap ORAL SCH (09:00)
[2019-06-28] MEDS: Lisinopril 20mg tab ORAL SCH (09:00)
[2019-06-28] MEDS: Ascorbic Acid 500mg tab ORAL SCH (09:00)
[2019-06-28] MEDS: Fleet's Enema 133ml RECTAL SCH (09:00)
[2019-06-28] MEDS: Multivitamin w/Minerals tab ORAL SCH (09:00)
--- NOTE | 2019-06-28 09:43 | NUR ---
NURSE NOTES: PT REFUSING MEDS. PT SCREAMS AND LAUGHS, COVERS HEAD WITH BLANKET. DR IRENE WAS AT BEDSIDE AND MADE AWARE. ORDER RECEIVED FOR US THYROID TO EVALUATE MASS ON RIGHT LATERAL NECK AND MAY ADMINISTER ATIVAN 1MG IM X1 BEFORE ULTRASOUND.
[2019-06-28] MEDS ORDERED: LORazepam Inj 2mg/ml 1ml IM PRN (09:45)
[2019-06-28 16:00] VITALS: BP 155/108
--- NOTE | 2019-06-28 19:36 | NUR ---
HAND-OFF: Report given to Shiraz MINAYA RN.
--- NOTE | 2019-06-28 19:44 | NUR ---
NURSE NOTES: Received patient awake,uncooperative,refused vital signs taken.
[2019-06-28] MEDS: Phenytoin 100mg cap ORAL SCH (21:00)
--- NOTE | 2019-06-28 22:16 | Progress Note ---
DATE: 06/28/2019 SUBJECTIVE: This is elderly male, currently very comfortable doing, improving. OBJECTIVE: VITAL SIGNS: Blood pressure is 155/86, pulse 96, no fever. CHEST: Bilaterally clear. CARDIOVASCULAR: Regular rhythm. ABDOMEN: Soft. EXTREMITIES: CCE. LABORATORY DATA: White counts are 13,000. ASSESSMENT: 1. Recurrent seizure. 2. Leukocytosis. 3. Dementia. 4. Depression. PLAN: 1. We will currently continue current medical treatment. 2. Continue Plavix. 3. Continue Colace, Pepcid, lisinopril, Lipitor. 4. Monitor blood pressure. 5. The patient is waiting for Neuro consult. Ernesto Degroot M.D. DR: GARY JOB#: [id number] CC:
[2019-06-29] VITALS: BP 117/78
[2019-06-29 00:01] VITALS: BP 146/100
--- NOTE | 2019-06-29 00:30 | Progress Note ---
DATE: 06/28/2019 CARDIOLOGY PROGRESS NOTE SUBJECTIVE: The patient has not had any new seizures. He is alert and interactive. Dose of Dilantin was advanced yesterday due to low level. OBJECTIVE: VITAL SIGNS: Blood pressure 155/108, earlier 119/83, heart rate 97, and respiratory rate 20. Afebrile. LUNGS: Diminished breath sounds. HEART: Regular rhythm and rate. Normal S1, S2. ABDOMEN: Soft. EXTREMITIES: No edema. IMPRESSION: 1. Seizure disorder. 2. Dementia. 3. Cerebrovascular disease. 4. Labile hypertension. PLAN: 1. Antiseizure therapy 2. Titrate doses of medications for therapeutic levels. 3. Echocardiogram to assess left ventricular function. 4. Adjust antihypertensive regimen accordingly. 5. P.r.n. antihypertensive therapy for blood pressure spikes. 6. DVT prophylaxis. 7. Maintain anti-lipid and anti-platelet regimen long-term. Gagan Camacho M.D. DR: KEYLA JOB#: [id number] CC:
--- NOTE | 2019-06-29 07:36 | NUR ---
HAND-OFF: Written Report given to ZAHRA Walton.
--- NOTE | 2019-06-29 08:28 | NUR ---
P.T Note: P.T evaluation attempted however unsuccessful due to uncooperative behavior . Pt became combative upon several attempts. RN notified. Will reattempt.
[2019-06-29] MEDS: Ascorbic Acid 500mg tab ORAL SCH (09:00)
[2019-06-29] MEDS: levETIRAcetam 500mg/5ml Liquid ORAL SCH ×2 (09:00→20:50)
[2019-06-29] MEDS: Lisinopril 20mg tab ORAL SCH (09:00)
[2019-06-29] MEDS: Fleet's Enema 133ml RECTAL SCH (09:00)
[2019-06-29] MEDS: Multivitamin w/Minerals tab ORAL SCH (09:00)
[2019-06-29] MEDS: Docusate 100mg cap ORAL SCH (09:00)
--- NOTE | 2019-06-29 10:21 | NUR ---
NURSE NOTES: Patient non-compliant with care. Dr. Degroot notified. New order received.
[2019-06-29] MEDS ORDERED: DiphenhydrAMINE 50mg/ml Inj IM SCH (10:30)
[2019-06-29] MEDS ORDERED: LORazepam Inj 2mg/ml 1ml IM SCH (10:30)
[2019-06-29 12:00] VITALS: BP 159/87
[2019-06-29 16:00] VITALS: BP 159/87
--- NOTE | 2019-06-29 18:55 | NUR ---
HAND-OFF: Report given to Anat SWEENEY.
--- NOTE | 2019-06-29 19:00 | NUR ---
NURSE NOTES: Received patient awake, non-verbal, uncooperative, resting in bed, and refused vital signs to be taken.
[2019-06-29] MEDS: Phenytoin 100mg cap ORAL SCH (20:50)
--- NOTE | 2019-06-29 22:00 | Progress Note ---
DATE: 06/29/2019 SUBJECTIVE: This is an elderly male, currently in bed, confused, refusing . OBJECTIVE: VITAL SIGNS: His blood pressure is slightly high 159/87, pulse 108, temperature 97.9. HEENT: AT/NC. EOMI. PERRLA. NECK: Supple. No JVD. CHEST: Bilaterally clear. CARDIOVASCULAR: Regular rhythm. ABDOMEN: Soft. EXTREMITIES: CCE. ASSESSMENT AND PLAN: 1. Seizure. 2. High blood pressure. 3. Leukocytosis. 4. Seizure. His cultures are so far negative. PLAN: We will currently continue current medical treatment. Ernesto Degroot M.D. DR: GARY JOB#: [id number] CC:
--- NOTE | 2019-06-29 23:30 | Progress Note ---
DATE: 06/29/2019 CARDIOLOGY PROGRESS NOTE SUBJECTIVE: The patient is alert, no distress. Baseline hemiparesis. The patient frequently refuses care including laboratory draws. OBJECTIVE: VITAL SIGNS: Blood pressure 159/87, heart rate 108, and respirations 20. LUNGS: Clear. CARDIAC: Regular. ABDOMEN: Soft. EXTREMITIES: No edema. NEUROLOGIC: Right hemiparesis. IMPRESSION: 1. Dementia with agitation and confusion. 2. Cerebrovascular accident with hemiparesis. 3. Seizure disorder with breakthrough seizure. 4. Hypertension and hypertensive heart disease with labile blood pressure. PLAN: 1. Antiseizure therapy. 2. Psych follow-up. 3. Review echocardiogram. 4. Additional antihypertensives have been added. It will be titrated based on clinical parameters. 5. Discontinue IV fluids. Gagan Camacho M.D. DR: KEYLA JOB#: [id number] CC:
--- NOTE | 2019-06-30 03:45 | Consultation ---
DATE OF CONSULTATION: 06/29/2019 CONSULTING PHYSICIAN: Isha Garrison M.D. HISTORY OF PRESENT ILLNESS: The patient is a 58-year-old male, who has a history of schizophrenia. The patient has been uncooperative when we go to the room, he covers his head with a blanket. He has been refusing care and laboratory draws. The patient is refusing to talk and answer the questions and the patient is unable to understand, process, communicate rationally. PAST PSYCHIATRY HISTORY: Unknown. He is not providing any history. PAST MEDICAL HISTORY: Seizure disorder, cerebrovascular disease, hypertension, dementia. ALLERGIES: No known drug allergies. SUBSTANCE ABUSE HISTORY: No known history of illicit drug use. Toxicology was negative. MENTAL STATUS EXAMINATION: Alert, uncooperative. Mood is neutral. Affect is flat. Thought process, there is a paucity of thought content. The patient was uncooperative with mini-mental status examination. ASSESSMENT: [place] I Dementia by history, . Rule out schizophrenia. [place] II Deferred. [place] III . [place] IV Low. [place] V 50. PLAN: 1. The patient lacks capacity to make any decision, refused labs and medication to the nurse to draw labs and clear the patient medically. 2. Risperidone 1 mg at bedtime. 3. The patient lacks capacity to make decisions. 4. We will continue to follow. Isha Garrison M.D. DR: MARCIA JOB#: [id number] CC:
--- NOTE | 2019-06-30 07:28 | NUR ---
HAND-OFF: Report given to ZAHRA Tomas.
[2019-06-30 09:00] VITALS: BP 159/87
[2019-06-30] MEDS: Docusate 100mg cap ORAL SCH (09:00)
[2019-06-30] MEDS: Ascorbic Acid 500mg tab ORAL SCH (09:00)
[2019-06-30] MEDS: Multivitamin w/Minerals tab ORAL SCH (09:00)
[2019-06-30] MEDS: Fleet's Enema 133ml RECTAL SCH (09:00)
[2019-06-30] MEDS: levETIRAcetam 500mg/5ml Liquid ORAL SCH (09:00)
[2019-06-30] MEDS ORDERED: Lisinopril 20mg tab ORAL SCH (09:00)
--- NOTE | 2019-06-30 09:36 | NUR ---
NURSE NOTES: Pt refused all meds and vs Addendum: 06/30/19 at 1155 by NORA MOSER RN Explained the importance of compliance with his seizure medication, pt still refused
--- NOTE | 2019-06-30 09:47 | NUR ---
CARDIOLOGY Patient refused 2D-echo on 06/29/2019 and 06/30/2019. Nurse is aware.
--- NOTE | 2019-06-30 11:52 | NUR ---
NURSE NOTES: recvd pt. Pt appears un cooperative, threw blanket over face and will not allow VS and refusing care. Pt is on room air and does not appear to be in distress. bed alarm is on, call light within reach, will continue with plan of care
--- NOTE | 2019-06-30 14:10 | NUR ---
NURSE NOTES: Per Dr Degroot ok to d/c pt back to [facility] if ok with dr Garrison. S/w dr Garrison, ok for d/c. Called Dr Degroot to confirm d/c for today, [id number]
[2019-06-30] MEDS ORDERED: PHENYTOIN SODI100 MG ORAL (14:28)
[2019-06-30] MEDS ORDERED: RISPERDAL1 MG PO (14:28)
--- NOTE | 2019-06-30 15:45 | Progress Note ---
DATE: 06/30/2019 SUBJECTIVE: This is an elderly male, currently sitting in the bed, comfortable, slightly confused. He is physically doing better. OBJECTIVE: VITAL SIGNS: Stable. CHEST: Bilaterally clear. CARDIOVASCULAR: Regular rhythm. No gallop. No murmur. ABDOMEN: Soft. EXTREMITIES: CCE. NEUROLOGICAL: Generalized weakness. HOSPITAL COURSE: The patient was started on antiseizure medications. Neuro consult was obtained. The patient otherwise asymptomatic. The patient going back to [facility]. DISCHARGE DIAGNOSES: 1. Status epilepticus. 2. Hypertension. 3. Depression. 4. Encephalopathy. DIET: He is on mechanical soft diet. ACTIVITY: The patient mostly bedridden. MEDICATIONS: See the list from the hospital. Ernesto Degroot M.D. DR: GARY JOB#: [id number] CC:
--- NOTE | 2019-06-30 15:46 | NUR ---
DISCHARGE PLANNING DISCHARGE ORDER NOTED Patient has been accepted to; [facility] [address] [place] [address] Bed: 3-A Skilled [phone] for Nurse to Nurse report [facility] ETA for transportation: 17:15
--- NOTE | 2019-06-30 18:10 | NUR ---
NURSE NOTES: called [facility] and gave report to Robert. VSS, Pt transported via [facility]
--- NOTE | 2019-06-30 21:03 | Discharge Summary ---
Discharge Summary Discharge Summary _ DATE OF ADMISSION: 06/26/2019 DATE OF DISCHARGE: 06/30/2019 DISCHARGED BY: Dr. Ernesto Degroot CONSULTANTS: Dr. Gagan Garrison BRIEF HOSPITAL COURSE: Patient is a 58-year-old male, who presented from [facility] due to witnessed tonic-clonic seizure. The patient has a history of seizure disorder. Patient is on Keppra. Patient is status post stroke involving the right side. He has medical diabetes, COPD, GERD, dysphagia on G-tube. On evaluation at the ED, vital signs were stable. Blood work showed leukocytosis, WBC13.8, with no left shift. CMP was unremarkable except for low bicarb. Urinalysis was negative. Urine toxicology screen negative. EKG did not show any injury. Chest x-ray with no infiltrate. CT of the brain showed old infarct and cortical encephalomalacia. No shift, edema, acute hemorrhage, mass-effect or abnormal axial fluid collections. He was then admitted for evaluation of seizure. He was placed on telemetry and plan. He was placed on seizure precautions. He was placed on Ativan as needed seizure activity. He was loaded with Keppra. Dilantin was added to his regimen. He was placed zonegran tid. Environmental Permitting Specialist was consulted. EKG was in sinus rhythm with no acute abnormalities. He was given lisinopril and Plavix. He was placed on Pepcid for GI prophylaxis. He was given IV hydration. He was given electrolyte replacement. Dilantin level 3.6. He was given Dilantin 300 mg nightly. Patient was uncooperative and was refusing blood draw. Refused to talk and answer questions. Psychiatric evaluation was done. Patient was diagnosed with dementia. He was assessed to lack capacity to make medical decisions. He was started on risperidone 1 mg nightly. There were no further seizure episodes. He was discharged to SNF. FINAL DIAGNOSES: Status epilepticus Hypertension and hypertensive heart disease mild to Depression Encephalopathy Dementia with agitation and confusion Cerebrovascular accident with hemiparesis Hyperkalemia Dehydration and borderline hypernatremia Subtherapeutic Dilantin DISPOSITION: DC to SNF DISCHARGE MEDICATIONS: Refer to Discharge Medication List. I have been assigned to complete a discharge summary on this account, I was not involved with the patient's management.--KRYSTAL Salgado Jacqueline Robles NP Jun 30, 2019 21:03
--- NOTE | 2019-06-30 23:00 | Progress Note ---
DATE: 06/30/2019 SUBJECTIVE: This patient remains uncooperative. Refusing laboratories and some medications. Psychiatry has felt he is unable to make decisions due to inadequate capacity. Therapy was added accordingly. No new seizures noted. OBJECTIVE: VITAL SIGNS: Blood pressure 159/87, pulse 108, and respirations 20. LUNGS: Clear. CARDIAC: Regular rhythm. Rapid rate. Normal S1, S2. ABDOMEN: Soft. EXTREMITIES: No edema. IMPRESSION: 1. Seizure disorder. 2. Cerebrovascular disease with hemiparesis and dementia. 3. Secondary sinus tachycardia. 4. Hypertensive heart disease with uncontrolled blood pressure due to medication noncompliance. PLAN: 1. Attempt to check blood levels of the antiseizure therapy. 2. Attempt to administer oral antihypertensive medications to include cardiovascular parameters. 3. Can add topical clonidine patch in the meantime until the patient is more compliant. 4. No indication at this time for IV fluids. 5. We will follow as needed. Gagan Camacho M.D. DR: KEYLA JOB#: [id number] CC:
--- NOTE | 2019-07-01 03:00 | Progress Note ---
DATE: 06/30/2019 SUBJECTIVE: The patient is the same. He is being discharged today. The patient continues to have behavior issues, uncooperative, and paranoid. MENTAL STATUS EXAMINATION: The patient is alert and oriented times, self, and place. Mood is irritable. Affect is flat. Thought process is concrete. Thought content, no suicidal or homicidal ideation. ASSESSMENT: Stable. PLAN: The patient will be discharged with psychotropic medications. Isha Garrison M.D. DR: LYN JOB#: [id number] CC:
--- NOTE | 2019-07-04 06:58 | Coder Physician Query ---
Clarification is required for compliance, coding accuracy, and to reflect severity of illness for this patient Dear Dr. WILLIAM IRENE Date: 07/04/19 Coal Cager/CDS Name: SHANTE, MARCUS Altered mentation and tachycardia in the setting of cerebrovascular disease and seizures. ASSESSMENT: 1. Uncontrolled seizure. 2. Hypertension. 3. Encephalopathy. 4. Depression. Please indicate the nature of the altered mentation below: [] Metabolic Encephalopathy [] Toxic Encephalopathy [] Toxic - Metabolic Encephalopathy [] Encephalopathy, Other [] Dementia with Delirium [] Hypoxic encephalopathy [] Posterior reversible encephalopathy syndrome [] seizure disorder [] Other: [] Not Applicable WILLIAM IRENE M.D. Date Please also document in your Progress Notes and/or Discharge Summary and indicate if the condition was present on admission. MTDD
== END 2019-06-30 18:25 | DRG 101 ==
LOC: EDBD 09:08 → EDBEDREQ 09:19 → EMR 10:15 → 2E 10:22 → EDBEDREQ 11:32 → 4E 06-27 15:16
DX: G40.901 Epilepsy, unspecified, not intractable, with status epilepticus (principal); E87.2 Acidosis; E44.1 Mild protein-calorie malnutrition; G93.40 Encephalopathy, unspecified; Z43.1 Encounter for attention to gastrostomy; I69.351 Hemiplegia and hemiparesis following cerebral infarction affecting right dominant side; F03.91 Unspecified dementia, unspecified severity, with behavioral disturbance; I11.9 Hypertensive heart disease without heart failure; F32.9 Major depressive disorder, single episode, unspecified; F03.90 Unspecified dementia, unspecified severity, without behavioral disturbance, psychotic disturbance, mood disturbance, and anxiety; R45.1 Restlessness and agitation; E87.5 Hyperkalemia; E86.0 Dehydration; M19.90 Unspecified osteoarthritis, unspecified site; E11.9 Type 2 diabetes mellitus without complications; J44.9 Chronic obstructive pulmonary disease, unspecified; K21.9 Gastro-esophageal reflux disease without esophagitis; R00.0 Tachycardia, unspecified; I69.320 Aphasia following cerebral infarction
CPT/HCPCS: 36415; 70450; 71045; 80053; 80061; 80185; 80307; 81003; 82306; 82550; 82607; 82746; 82962; 83735; 84443; 84484; 85025; 87081; 93005; 96361; 96374; 96375; 99285; G0480; J7030